=== PATIENT | female | born 1950 | race Caucasian/White ===

== ENCOUNTER 2021-05-25 10:36 | Outpatient (CLI) | payer MEDICARE ==
[2021-05-26 01:01] LABS: SARS-CoV-2 PCR by NAA Not Detected (NotDetected)
== END 2021-05-25 10:37 | disposition home or self-care (01) ==
LOC: LABBT 10:36
PROVIDERS: ATTEND Specialist
DX: Z01.812 Encounter for preprocedural laboratory examination (principal); Z20.822 Contact with and (suspected) exposure to COVID-19
CPT/HCPCS: U0003; U0005

== ENCOUNTER 2021-05-28 10:13 | Outpatient (CLI) | payer MEDICARE | END 2021-05-28 10:14 | disposition home or self-care (01) | LOC: RAD 10:13 | PROVIDERS: ATTEND Specialist | DX: R13.10 Dysphagia, unspecified (principal); K22.8 Other specified diseases of esophagus | CPT/HCPCS: 74220 ==